=== PATIENT | female | born 1995 | race Caucasian/White ===

== ENCOUNTER 2020-09-19 00:26 | Emergency (ER) | payer BC ==
[~2020-09-19] VITALS: Ht 157.4 cm; Wt 52.2 kg
[~2020-09-19 00:26] MED LIST: CATAFLAM50 MG PO; CIPRO250 MG PO; CLARITIN10 MG PO; DIFLUCAN100 MG PO; FIORICET 325 MG1 TAB PO; GENTAMYCIN3 MG/ML OU; IBU-4400 MG PO; NAPROSYN375 MG PO; NKHM; PYRIDIUM200 MG PO; ULTRAM50 MG PO
== END 2020-09-19 01:30 | disposition home or self-care (01) ==
LOC: ED 00:26
DX: M79.661 Pain in right lower leg (principal); G43.909 Migraine, unspecified, not intractable, without status migrainosus